=== PATIENT | male | born 1960 | race Caucasian/White ===

== ENCOUNTER → 2019-11-02 | Outpatient (CLI) | payer OTHER ==
[2019-11-02 12:48] LABS: CALCIUM 9.6 mg/dL (8.5-10.1); CREATININE 0.7 mg/dL (0.7-1.3); POTASSIUM 4.2 mmol/L (3.5-5.1)
== END ==
LOC: SJCVCIMAG 08:46 → CAT 09:20 → LAB 09:20
PROVIDERS: ATTEND Internal Medicine
DX: Z01.818 Encounter for other preprocedural examination (principal); Q25.40 Congenital malformation of aorta unspecified; I25.10 Atherosclerotic heart disease of native coronary artery without angina pectoris; R59.0 Localized enlarged lymph nodes; R91.8 Other nonspecific abnormal finding of lung field

== ENCOUNTER → 2019-11-03 | Outpatient (CLI) | payer OTHER | LOC: SJCVCIMAG 08:28 | PROVIDERS: ATTEND Internal Medicine | DX: Z01.818 Encounter for other preprocedural examination (principal); R07.89 Other chest pain; I10 Essential (primary) hypertension; Z79.899 Other long term (current) drug therapy; Z87.891 Personal history of nicotine dependence ==

== ENCOUNTER → 2020-11-06 | Outpatient (CLI) | payer OTHER ==
[2020-11-06 08:54] LABS: CREATININE 0.8 mg/dL (0.7-1.3)
== END ==
LOC: CAT 07:31
PROVIDERS: ATTEND Internal Medicine
DX: I71.2 Thoracic aortic aneurysm, without rupture (principal); R91.1 Solitary pulmonary nodule; I25.10 Atherosclerotic heart disease of native coronary artery without angina pectoris; M47.814 Spondylosis without myelopathy or radiculopathy, thoracic region; R59.0 Localized enlarged lymph nodes; R91.8 Other nonspecific abnormal finding of lung field